=== PATIENT | male | born 1950 | race Caucasian/White ===

== ENCOUNTER 2016-05-31 12:34 | Inpatient (IN) | payer MEDICARE, OTHER ==
[2016-05-18 20:57] LABS: BASOPHILS 0.2 %; BASOPHILS ABSOLUTE 0.01 10/3/uL (0.0-0.16); EOSINOPHILS 0 %; LYMPHOCYTES 21.6 %; LYMPHOCYTES ABSOLUTE 0.99 10/3/uL (0.67-4.30); MEAN CORPUS HGB CONC 34.1 g/dL (32.0-36.0); MEAN CORPUSCULAR HEMOGLOB 32.3 pg (26.0-34.0); MEAN CORPUSCULAR VOLUME 94.5 fL (80-100); MEAN PLATELET VOLUME 9.8 fL (9.2-13.0); MONOCYTES 17.9 %; MONOCYTES ABSOLUTE 0.82 10/3/uL (0.21-1.20); NEUTROPHILS 60.3 %; NEUTROPHILS ABSOLUTE 2.76 10/3/uL (2.02-8.40); RBC DISTRIBUTION WIDTH 14.4 % (12.0-16.0); RED CELL COUNT 4.03 10/6/uL (4.7-6.1); WHITE BLOOD CELLS 4.6 10/3/uL (4.5-10.5)
[2016-05-18 20:58] LABS: HEMATOCRIT 38.1 % (40.0-51.0); MANUAL DIFF NO %; PLATELET COUNT 176 10/3/uL (150-400)
[2016-05-18 21:05] LABS: INTERNATIONAL NORMAL RATI 1.2 UNITS (-); PROTIME (NOT ORD) 14.6 SEC (12.0-14.5)
[2016-05-18 21:13] LABS: ASCORBIC ACID (UR NOT ORDER) NEG (NEG); BILIRUBIN, URINE NEGATIVE (NEG); KETONE, URINE NEGATIVE (NEG); LEUKOCYTE ESTERASE(NOT OR NEG (NEG); WBC (NOT ORDERED) (RFLEX) < 1 (0-5)
[2016-05-18 21:25] LABS: A/G RATIO 1.3 (0.7-1.9); ALBUMIN 4.1 G/DL (3.5-5.0); ALKALINE PHOSPHATASE 68 U/L (45-117); BUN (BLOOD UREA NITROGEN) 30 MG/DL (6-23); CALCIUM, SERUM 8.7 MG/DL (8.5-10.4); CHLORIDE, SERUM 100 MMOL/L (96-112); CO2 (CARBON DIOXIDE) 26 MMOL/L (24-34); GFR AFRICAN AMERICAN 80 ML/MIN (>=60); GFR NON AFRICAN AMERICAN 69 ML/MIN (>=60); GLOBULIN 3.1 G/DL (2.5-4.1); GLUCOSE, SERUM 117 MG/DL (60-99); POTASSIUM, SERUM 4.1 MMOL/L (3.5-5.3); SGOT(AST) 19 U/L (5-40); SGPT(ALT) 33 U/L (5-65); SODIUM, SERUM 138 MMOL/L (135-148); TOTAL BILIRUBIN 0.4 MG/DL (0-1.2); TOTAL PROTEIN 7.2 G/DL (6.0-8.5)
--- NOTE | ~2016-05-31 | OP ---
Record Of Operation [facility] [address] [place]. 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 POSTOPERATIVE DIAGNOSIS: Failed left total knee arthroplasty. PROCEDURE: Left total knee revision arthroplasty. SURGEON: Frandy Rao M.D. STENOTYPE OPERATOR: See chart. DESCRIPTION OF PROCEDURE: The patient was taken to the operating room and placed supine on the table in normal fashion without incident. General anesthetic was induced per the anesthesiologist. The patient was carefully positioned, padded, prepped, and draped in normal sterile fashion. Left lower extremity was exsanguinated and tourniquet inflated to 350. Sharp dissection was made through the old incision with electrocautery through the fat. Sharp quad splitting approach was carried out. Benign-appearing fluid was sent for cultures and gram stain. There was abundant hypertrophic synovium throughout the grossly loose tibia and obvious separation between the bone and the cement around the femoral component. Both leads were easily removed with flexible osteotome. Meticulous debridement was done of the cement and granulation tissue in the distal femoral proximal tibial canal. Sequential reamers were used, and intramedullary guide was used to cut the proximal tibia and distal femur. The remaining cuts were made in the distal femur. Appropriate augmentation was chosen which gave excellent medial and lateral balance and excellent extension balance. 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 It was removed with osteotomes, cement debrided with a new patellar cut. It was redrilled with patella drill guide. Copious irrigation was done with pulsatile lavage, and all surfaces were dried. Vacuum mixed cement was pressurized in a doughy phase in the tibia. Tibial component placed, impacted, and excess cement removed. I carefully palpated with reverse biting curette off the [place] set to be sure there was no violation of the canal. Cement was pressurized in the distal femur. Placed on the posterior runners of the femoral component and around the revision femoral component which was placed, impacted, and excess cement removed. Knee brought out in extension on a trial spacer. Cement was pressurized in the patella. Patellar component placed, held with a clamp, and excess cement removed. Once all cement was hardened, knee was taken through range of motion. Further extruded cement was removed small osteotome. The actual insert was then placed, impacted, and checked to be sure it was down snug. The knee was closed in a layered fashion over a medium ConstaVac drain superolaterally. The wound was dressed sterilely. The patient awakened and taken to the postanesthesia care unit without incident. COMPLICATIONS: None. SPECIMENS: Cultures. Record Of Operation [address] [place]. [address] NAME: KODY MARIO : 48 STATUS : ADM IN [facility] WITH [facility]#: [id number] AGE: 66 ADM/REG DATE : 05/31/16 MR#: [id number] REPORT SERV DATE: 06/02/16 DICTATED BY: KAYLA RAO DATE: 06/01/16 REPORT STATUS : Draft TRANSCRIBED BY: MODL DATE: 06/01/16 ESTIMATED BLOOD LOSS: Trace. WTB/MODL Frandy Rao M.D. / [id number] CC: Dorothy Mccartney M.D.
[~2016-05-31 12:34] MED LIST: ACET500CAP PO; ASAB PO; C5; CAT3 PO; GLUCPH PO; HYDROCHLOROT12.5 MG PO; HYT5 PO; LOTE20 PO; NAP500 PO; NORV5 PO; PCET PO; XALAT OPH; Z300 PO
[2016-06-01 04:52] LABS: HEMATOCRIT 35.5 % (40.0-51.0); HEMOGLOBIN 12.3 g/dL (13.6-17.8)
[2016-06-01 04:57] LABS: INTERNATIONAL NORMAL RATI 1.2 UNITS (-); PROTIME (NOT ORD) 14.9 SEC (12.0-14.5)
[2016-06-01 05:05] LABS: BUN (BLOOD UREA NITROGEN) 27 MG/DL (6-23); CALCIUM, SERUM 8.5 MG/DL (8.5-10.4); CHLORIDE, SERUM 102 MMOL/L (96-112); CO2 (CARBON DIOXIDE) 24 MMOL/L (24-34); CREATININE 1.21 MG/DL (0.70-1.30); GFR AFRICAN AMERICAN 71 ML/MIN (>=60); GFR NON AFRICAN AMERICAN 62 ML/MIN (>=60); GLUCOSE, SERUM 136 MG/DL (60-99); POTASSIUM, SERUM 4.3 MMOL/L (3.5-5.3); SODIUM, SERUM 137 MMOL/L (135-148)
[2016-06-02 06:04] LABS: BASOPHILS 0.1 %; BASOPHILS ABSOLUTE 0.01 10/3/uL (0.0-0.16); EOSINOPHILS 0.3 %; EOSINOPHILS ABSOLUTE 0.03 10/3/uL (0.0-0.53); HEMATOCRIT 35.6 % (40.0-51.0); HEMOGLOBIN 12.3 g/dL (13.6-17.8); IMMATURE GRANULOCYTES 0.3 %; IMMATURE GRANULOCYTES ABSOLUTE 0.03 10/3/uL (0.0-0.11); LYMPHOCYTES 10.8 %; LYMPHOCYTES ABSOLUTE 0.96 10/3/uL (0.67-4.30); MEAN CORPUS HGB CONC 34.6 g/dL (32.0-36.0); MEAN CORPUSCULAR HEMOGLOB 32.6 pg (26.0-34.0); MEAN CORPUSCULAR VOLUME 94.4 fL (80-100); MEAN PLATELET VOLUME 9.6 fL (9.2-13.0); MONOCYTES 12.6 %; MONOCYTES ABSOLUTE 1.12 10/3/uL (0.21-1.20); NEUTROPHILS 75.9 %; NEUTROPHILS ABSOLUTE 6.73 10/3/uL (2.02-8.40); PLATELET COUNT 163 10/3/uL (150-400); RED CELL COUNT 3.77 10/6/uL (4.7-6.1)
[2016-06-02 06:08] LABS: MANUAL DIFF NO %; WHITE BLOOD CELLS 8.9 10/3/uL (4.5-10.5)
[2016-06-02 06:11] LABS: INTERNATIONAL NORMAL RATI 1.4 UNITS (-); PROTIME (NOT ORD) 16.6 SEC (12.0-14.5)
[2016-06-02 06:18] LABS: BUN (BLOOD UREA NITROGEN) 24 MG/DL (6-23); CHLORIDE, SERUM 102 MMOL/L (96-112); CO2 (CARBON DIOXIDE) 27 MMOL/L (24-34); CREATININE 1.17 MG/DL (0.70-1.30); GFR AFRICAN AMERICAN 74 ML/MIN (>=60); GFR NON AFRICAN AMERICAN 64 ML/MIN (>=60); GLUCOSE, SERUM 137 MG/DL (60-99); POTASSIUM, SERUM 4.5 MMOL/L (3.5-5.3); SODIUM, SERUM 139 MMOL/L (135-148)
[2016-06-02] MEDS ORDERED: PCET PO (11:08)
[2016-06-02] MEDS ORDERED: C5 (11:08)
== END 2016-06-02 12:10 | disposition home or self-care (01) | DRG 467 ==
LOC: SDC/OF 12:34 → 3JRC 20:40
PROVIDERS: Specialist
PROC: 3E0T3CZ (ICD-10-PCS; 2016-05-31)
PROC: 0SWD0JZ Revision of Synthetic Substitute in Left Knee Joint, Open Approach (ICD-10-PCS; principal; 2016-05-31 15:15)
DX: T84.093A Other mechanical complication of internal left knee prosthesis, initial encounter (principal); N17.9 Acute kidney failure, unspecified; R11.0 Nausea; I10 Essential (primary) hypertension; E11.9 Type 2 diabetes mellitus without complications; Z79.899 Other long term (current) drug therapy; Z79.82 Long term (current) use of aspirin; M10.9 Gout, unspecified; G47.33 Obstructive sleep apnea (adult) (pediatric); E66.9 Obesity, unspecified; Z68.38 Body mass index [BMI] 38.0-38.9, adult
CPT/HCPCS: 36415; 80048; 80053; 81001; 82962; 85014; 85018; 85025; 85610; 86850; 86870; 86900; 86901; 86920; 86922; 87015; 87070; 87075; 87102; 87116; 87205; 87641; 88300; 88304; 93005; 97150-GP; 97161-GP; 97165-GO; A9270-GY; C1776; G8978-CI-GP; G8979-CH-GP; J0690; J1885; J2250; J2274; J2795; J3010